=== PATIENT | female | born 1975 | race Hispanic/Latino ===

== ENCOUNTER 2018-07-27 16:03 | Emergency (ER) | payer BC, OTHER ==
[2018-07-27 16:51] LABS: BASOPHILS % (AUTO) 0.9 % (0.0-5.0); EOSINOPHILS % (AUTO) 1.9 % (0.0-8.0); HEMATOCRIT 38.2 % (36-48); LYMPHOCYTES % (AUTO) 31.2 % (21.0-51.0); MEAN CORPUSCULAR HEMOGLOBIN 26.2 pg (27.0-33.0); MEAN CORPUSCULAR HGB CONC 32.6 g/dL (32.0-36.0); MEAN CORPUSCULAR VOLUME 80.2 fL (79-99); MONOCYTES % (AUTO) 5.2 % (3.0-13.0); NEUTROPHILS % (AUTO) 60.8 % (40.0-77.0); PLATELET COUNT (AUTO) 262 K/uL (130-400); RED BLOOD CELL COUNT(AUTO) 4.76 MIL/uL (4.00-5.50); RED CELL DISTRIBUTION WIDTH 13.4 % (11.0-15.5); WHITE BLOOD COUNT (AUTO) 8.9 K/uL (4.8-10.8)
[2018-07-27 16:59] LABS: CREATININE 0.8 mg/dL (0.5-1.5); POTASSIUM 4.1 mmol/L (3.5-5.1)
[2018-07-27 17:13] LABS: APPEARANCE,URINE Clear (CLEAR); BILIRUBIN,URINE Negative (NEGATIVE); COLOR,URINE Yellow (YELLOW); GLUCOSE, URINE (UA) Negative (NEGATIVE); KETONES,URINE Negative (NEGATIVE); LEUKOCYTE ESTERASE ,URINE Negative (NEGATIVE); NITRATE,URINE Negative (NEGATIVE); OCCULT BLOOD,URINE Negative (NEGATIVE); PROTEIN,URINE Negative (NEGATIVE)
[2018-07-27 17:20] LABS: HCG,QUAL RESULT NEGATIVE (NEGATIVE)
[2018-07-27] MEDS ORDERED: IOHEXOL-350 75 ML VIAL IV ONE (18:05)
[2018-07-27] MEDS ORDERED: CEFTRIAXONE SODIUM 1 GM ONE (19:34)
[2018-07-27] MEDS ORDERED: SODIUM CHLORIDE 0.9% 50 ML IV ONE (19:34)
== END 2018-07-27 20:25 | disposition home or self-care (01) ==
LOC: EDH 16:03
DX: L03.316 Cellulitis of umbilicus (principal); Z98.890 Other specified postprocedural states; Z87.891 Personal history of nicotine dependence
CPT/HCPCS: 36415; 74177; 80048; 81003; 81025; 85025; 96374; 99285; J0696; Q9967

== ENCOUNTER 2020-01-18 10:42 | Emergency (ER) | payer BC, OTHER, SELFPAY ==
[2020-01-18] MEDS ORDERED: KETOROLAC TROMETHAMINE 60 MG/2 ML VIAL ONE (11:47)
[2020-01-18] MEDS ORDERED: METHYLPREDNISOLONE SOD SUCC 125MG/2ML VIAL ONE (11:47)
[2020-01-18 11:54] LABS: BASOPHILS % (AUTO) 0.5 % (0.0-5.0); HEMATOCRIT 38.3 % (36-48); LYMPHOCYTES % (AUTO) 30.3 % (21.0-51.0); MEAN CORPUSCULAR HEMOGLOBIN 25.5 pg (27.0-33.0); MEAN CORPUSCULAR HGB CONC 32.1 g/dL (32.0-36.0); MEAN CORPUSCULAR VOLUME 79.5 fL (79-99); MONOCYTES % (AUTO) 8.9 % (3.0-13.0); NEUTROPHILS % (AUTO) 58.1 % (40.0-77.0); PLATELET COUNT (AUTO) 255 K/uL (130-400); RED BLOOD CELL COUNT(AUTO) 4.82 MIL/uL (4.00-5.50); RED CELL DISTRIBUTION WIDTH 14.3 % (11.0-15.5); WHITE BLOOD COUNT (AUTO) 4.1 K/uL (4.8-10.8)
[2020-01-18 12:23] LABS: CREATININE 0.8 mg/dL (0.5-1.5); POTASSIUM 3.9 mmol/L (3.5-5.1)
== END 2020-01-18 14:22 | disposition home or self-care (01) ==
LOC: EDH 10:42
DX: U07.1 COVID-19 (principal); J12.89 Other viral pneumonia; J45.909 Unspecified asthma, uncomplicated; Z90.49 Acquired absence of other specified parts of digestive tract
CPT/HCPCS: 36415; 71045; 80048; 82728; 85025; 85378; 96372 ×2; 99284; J1885; J2930; U0003

== ENCOUNTER 2020-01-24 20:33 | Inpatient (IN) | payer OTHER ==
[2020-01-25] MEDS ORDERED: LACTULOSE 20 GM/30 ML UDCUP PO PRN (02:45)
[2020-01-25] MEDS ORDERED: ACETAMINOPHEN 325 MG TAB PO PRN ×2 (02:45)
[2020-01-25] MEDS ORDERED: ONDANSETRON HCL 4 MG/2 ML VIAL IV PRN (02:45)
[2020-01-25] MEDS ORDERED: ERGOCALCIFEROL (VITAMIN D2) 50,000 UNIT CAPSULE PO SCH (02:45)
[2020-01-25] MEDS ORDERED: ALBUTEROL INHALER 90MCG/INH IH PRN (02:45)
[2020-01-25] MEDS ORDERED: CEFTRIAXONE SODIUM 1 GM IVP SCH (02:45)
[2020-01-25] MEDS ORDERED: METHYLPREDNISOLONE SOD SUCC 40MG/ML 1ML IVP SCH (03:00)
[2020-01-25] MEDS ORDERED: ERGOCALCIFEROL (VITAMIN D2) 50,000 UNIT CAPSULE ONE ×3 (03:14→10:01)
[2020-01-25] MEDS ORDERED: CEFTRIAXONE SODIUM 1 GM ONE ×3 (03:14→13:13)
[2020-01-25] MEDS ORDERED: SODIUM CHLORIDE 0.9% 50 ML IV ONE (03:16)
[2020-01-25] MEDS ORDERED: ACETAMINOPHEN 325 MG TAB ONE ×2 (03:27→10:00)
[2020-01-25] MEDS ORDERED: METHYLPREDNISOLONE SOD SUCC 40MG/ML 1ML ONE ×2 (08:14→21:23)
[2020-01-25] MEDS ORDERED: ASCORBIC ACID 500 MG TAB ONE (08:14)
[2020-01-25] MEDS ORDERED: DOXYCYCLINE HYCLATE 100 MG TABLET PO ONE ×2 (08:14→21:23)
[2020-01-25] MEDS ORDERED: ZINC SULFATE 220 CAPSULE ONE (08:15)
[2020-01-25] MEDS ORDERED: ENOXAPARIN SODIUM 40 MG/0.4 ML SYRINGE SQ ONE (08:15)
[2020-01-25] MEDS ORDERED: FAMOTIDINE/PF 20 MG/2 ML VIAL IV ONE ×2 (08:16→21:23)
[2020-01-25] MEDS ORDERED: DOXYCYCLINE HYCLATE 100 MG TABLET PO SCH (09:00)
[2020-01-25] MEDS ORDERED: FAMOTIDINE 20MG TAB 20 MG TAB PO SCH (09:00)
[2020-01-25] MEDS ORDERED: ASCORBIC ACID 500 MG TAB PO SCH (09:00)
[2020-01-25] MEDS ORDERED: ZINC SULFATE 220 CAPSULE PO SCH (09:00)
[2020-01-25] MEDS ORDERED: ENOXAPARIN SODIUM 40 MG/0.4 ML SYRINGE SQ SCH (09:00)
--- NOTE | 2020-01-25 15:34 | NUR ---
INITIAL SW spoke to patient's sister, Guillermina Orr, [phone]. Patient lives with her parents. No home services or DME. Patient works retail branch manager. She is able to complete ADL's independently and drives. PCP is Dr. Lynn Ferris. Sister is not sure of what pharmacy patient uses. DCP is home. Patient has no insurance or benefits. She is a [place] citizen and is presently working. Patient's sister educated on [employer] $4 medication program and [employer] $5 medication program. Patient is being assisted by [employer] for financial matters. Addendum: 01/25/20 at 1540 by SAKINA BRANDT Amended: Links added.
== END 2020-01-25 23:10 | disposition home or self-care (01) | DRG 177 ==
LOC: EDH 20:33 → EDHIP 20:34
PROVIDERS: ADMIT Hospitalist; ATTEND Hospitalist
DX: U07.1 COVID-19 (principal); J12.89 Other viral pneumonia; J45.909 Unspecified asthma, uncomplicated; E66.9 Obesity, unspecified; Z87.891 Personal history of nicotine dependence

== ENCOUNTER 2021-10-15 04:41 | Emergency (ER) | payer OTHER ==
[~2021-10-15] VITALS: Ht 165.1 cm; Wt 172.4 kg
[2021-10-15] MEDS ORDERED: IBUPROFEN 600 MG TABLET PO ONE (06:00)
[2021-10-15] MEDS ORDERED: HYDROCODONE/ACETAMINOPHEN 5/325 MG TAB PO ONE (06:00)
[2021-10-15 07:23] VITALS: BP 157/84
== END 2021-10-15 08:41 | disposition home or self-care (01) ==
LOC: EDH 04:41
DX: S62.612A Displaced fracture of proximal phalanx of right middle finger, initial encounter for closed fracture (principal); S62.614A Displaced fracture of proximal phalanx of right ring finger, initial encounter for closed fracture; Z79.1 Long term (current) use of non-steroidal anti-inflammatories (NSAID); X58.XXXA Exposure to other specified factors, initial encounter; Y93.89 Activity, other specified; Y92.89 Other specified places as the place of occurrence of the external cause; Y99.8 Other external cause status
CPT/HCPCS: 73130

== ENCOUNTER 2022-01-04 19:27 | Emergency (ER) | payer OTHER ==
[~2022-01-04] VITALS: Ht 165.1 cm; Wt 177.4 kg
[2022-01-04 20:36] VITALS: BP 145/93
[2022-01-04] MEDS ORDERED: KETOROLAC 15MG/ML VIAL (15MG/ML) IM ONE (21:00)
[2022-01-04] MEDS ORDERED: IBUP-2070 PO (21:17)
[2022-01-04] MEDS ORDERED: ONDA4TAB10 PO (21:17)
[2022-01-04] MEDS ORDERED: D-ME118S47 PO (21:17)
== END 2022-01-04 21:39 | disposition home or self-care (01) ==
LOC: EDH 19:27
DX: U07.1 COVID-19 (principal); Z98.890 Other specified postprocedural states
CPT/HCPCS: 87635; 87804 ×2; 96372; 99283; C9803; J1885

== ENCOUNTER 2022-05-07 12:47 | Emergency (ER) | payer OTHER ==
[~2022-05-07] VITALS: Ht 165.1 cm; Wt 172.4 kg
[~2022-05-07 12:47] MED LIST: D-ME118S47 PO; IBUP-2070 PO; ONDA4TAB10 PO
[2022-05-07 13:16] LABS: BASOPHILS % (AUTO) 0.6 % (0.0-5.0); EOSINOPHILS % (AUTO) 0.9 % (0.0-8.0); LYMPHOCYTES % (AUTO) 28.3 % (21.0-51.0); MEAN CORPUSCULAR HEMOGLOBIN 24.1 pg (27.0-33.0); MEAN CORPUSCULAR HGB CONC 32.2 g/dL (32.0-36.0); MEAN CORPUSCULAR VOLUME 74.7 fL (79-99); MONOCYTES % (AUTO) 5.1 % (3.0-13.0); NEUTROPHILS % (AUTO) 64.6 % (40.0-77.0); PLATELET COUNT (AUTO) 331 K/uL (130-400); RED BLOOD CELL COUNT(AUTO) 4.82 MIL/uL (4.00-5.50); RED CELL DISTRIBUTION WIDTH 14.4 % (11.0-15.5); WHITE BLOOD COUNT (AUTO) 10.2 K/uL (4.8-10.8)
[2022-05-07 13:28] LABS: CREATININE 0.8 mg/dL (0.5-1.5); POTASSIUM 3.6 mmol/L (3.5-5.1)
[2022-05-07] MEDS ORDERED: ALBUTEROL 0.083% 2.5 MG/3 ML INH IH ONE (13:30)
[2022-05-07] MEDS ORDERED: AZITHROMYCIN 250 MG TABLET PO ONE (13:30)
[2022-05-07] MEDS ORDERED: AMOX/CLAV 875/125MG TAB PO ONE (13:30)
[2022-05-07] MEDS ORDERED: GUAIFENESIN-CODEINE 5 ML SYRUP PO ONE (13:30)
[2022-05-07] MEDS ORDERED: IPRATROPIUM/ALBUTEROL SULFATE 3 ML SOLUTION IH ONE (13:30)
[2022-05-07] MEDS ORDERED: SOLU-MEDROL 125MG VIAL IVP ONE (13:30)
[2022-05-07] MEDS ORDERED: BUDESONIDE 0.5 MG/2 ML INH IH SCH (13:30)
[2022-05-07 13:40] LABS: ALBUMIN 3.5 g/dL (3.5-5.0); TOTAL PROTEIN, SERUM 7.7 g/dL (6.0-8.3)
[2022-05-07] MEDS ORDERED: AMOX1TAB16 PO (14:39)
[2022-05-07] MEDS ORDERED: D-ME1POW16 PO (14:39)
[2022-05-07] MEDS ORDERED: PRED20TA3 PO (14:39)
[2022-05-07] MEDS ORDERED: ALBU90AE2 IH (14:39)
[2022-05-07 15:46] VITALS: BP 162/93
== END 2022-05-07 15:48 | disposition home or self-care (01) ==
LOC: EDH 12:47
DX: J40 Bronchitis, not specified as acute or chronic (principal); E66.01 Morbid (severe) obesity due to excess calories; Z20.822 Contact with and (suspected) exposure to COVID-19; F17.200 Nicotine dependence, unspecified, uncomplicated; Z68.44 Body mass index [BMI] 60.0-69.9, adult; Z79.1 Long term (current) use of non-steroidal anti-inflammatories (NSAID); Z71.6 Tobacco abuse counseling
CPT/HCPCS: 99285; 96374; 71045; 87635; 84484; 80053; 85025; 87804 ×2; 86140; 36415; 94640 ×3; C9803; J2930

== ENCOUNTER 2022-08-21 20:38 | Emergency (ER) | payer OTHER ==
[~2022-08-21] VITALS: Ht 165.1 cm; Wt 185.5 kg
[~2022-08-21 20:38] MED LIST changes: +ALBU90AE2 IH; +AMOX1TAB16 PO; +D-ME1POW16 PO; +PRED20TA3 PO
[2022-08-21 22:40] VITALS: BP 198/109
[2022-08-21 22:42] LABS: BASOPHILS % (AUTO) 0.2 % (0.0-5.0); EOSINOPHILS % (AUTO) 0.9 % (0.0-8.0); LYMPHOCYTES % (AUTO) 21.8 % (21.0-51.0); MEAN CORPUSCULAR HEMOGLOBIN 24.1 pg (27.0-33.0); MEAN CORPUSCULAR HGB CONC 31.1 g/dL (32.0-36.0); MEAN CORPUSCULAR VOLUME 77.6 fL (79-99); MONOCYTES % (AUTO) 6.4 % (3.0-13.0); NEUTROPHILS % (AUTO) 70.1 % (40.0-77.0); PLATELET COUNT (AUTO) 291 K/uL (130-400); RED BLOOD CELL COUNT(AUTO) 4.77 MIL/uL (4.00-5.50); RED CELL DISTRIBUTION WIDTH 15.2 % (11.0-15.5); WHITE BLOOD COUNT (AUTO) 8.7 K/uL (4.8-10.8)
[2022-08-21 23:06] LABS: ALBUMIN 3.3 g/dL (3.5-5.0); CREATININE 0.9 mg/dL (0.5-1.5); POTASSIUM 3.3 mmol/L (3.5-5.1); TOTAL PROTEIN, SERUM 7.2 g/dL (6.0-8.3)
[2022-08-22 00:42] LABS: APPEARANCE,URINE CLEAR (CLEAR); BILIRUBIN,URINE NEGATIVE (NEGATIVE); COLOR,URINE YELLOW (YELLOW); GLUCOSE, URINE (UA) NEGATIVE (NEGATIVE); KETONES,URINE NEGATIVE (NEGATIVE); LEUKOCYTE ESTERASE ,URINE 25 Leu/uL (NEGATIVE); NITRATE,URINE NEGATIVE (NEGATIVE); OCCULT BLOOD,URINE NEGATIVE (NEGATIVE); PH,URINE 5.5 (5.0-8.0); PROTEIN,URINE 20 mg/dL (NEGATIVE); UROBILINOGEN,URINE 0.2 mg/dL (0.2-1.0)
[2022-08-22 00:44] LABS: HCG,QUALITATIVE URINE NEGATIVE (NEGATIVE)
[2022-08-22 00:46] LABS: MUCUS,URINE MANY LPF (None Seen); SQUAMOUS EPITHELIAL CELL,UR FEW /HPF (0-2)
[2022-08-22] MEDS ORDERED: POTASSIUM BICARB/CIT AC 25 MEQ TABLET.EFF ONE (00:51)
[2022-08-22] MEDS ORDERED: POTASSIUM BICARB/CIT AC 25 MEQ TABLET.EFF PO ONE (01:00)
[2022-08-22] MEDS ORDERED: CEFTRIAXONE 1G VIAL ONE (02:11)
[2022-08-22] MEDS ORDERED: CEPH500B PO (02:14)
[2022-08-22] MEDS ORDERED: CEFTRIAXONE 1G VIAL IM ONE (02:30)
== END 2022-08-22 02:33 | disposition home or self-care (01) ==
LOC: EDH 20:38
DX: N39.0 Urinary tract infection, site not specified (principal); E66.9 Obesity, unspecified; Z68.44 Body mass index [BMI] 60.0-69.9, adult; Z79.899 Other long term (current) drug therapy; Z98.890 Other specified postprocedural states
CPT/HCPCS: 99283; 80053; 83690; 85025; 81001; 81025; 36415; 96372; J0696